=== PATIENT | female | born 1955 ===

== ENCOUNTER 2022-01-14 09:05 | Inpatient (IN) ==
[~2022-01-14 09:05] MED LIST: Buffered Lidocaine 1% SYRIN 1 ml INTRADERM ONE; Lactated Ringers 1000 ml BAG 1,000 ML IV SCH; Naloxone 0.4 mg VIAL 0.4 mg/ml 1 ml VIAL IV PRN; Prochlorperazine 5 mg/ml 2 ml VIAL (10 mg) IV PRN
[2022-01-14] MEDS ORDERED: Clindamycin 900 MG/D5W BAG 900 MG/50 ML BAG IVPB ONE (09:35)
[2022-01-14] MEDS ORDERED: Lidocaine 2% PF 5 ML VIAL ONE (11:51)
[2022-01-14] MEDS ORDERED: Propofol 10 MG/ML 20 ML BTL ONE ×2 (11:51→14:14)
[2022-01-14] MEDS ORDERED: fentaNYL 250 mcg/5 ml 50 MCG/ML 5 ml VIAL (250 MCG) ONE (12:21)
[2022-01-14] MEDS ORDERED: ROPIVACAINE 5 MG/ML 30 ML BTL (0.5%) ONE (12:21)
[2022-01-14] MEDS ORDERED: Midazolam 2 mg/2 ml VIAL 1 mg/ml 2 ml VIAL (2 mg) ONE (12:21)
[2022-01-14] MEDS ORDERED: Lactulose 30 ml UDC PO PRN (13:58)
[2022-01-14] MEDS ORDERED: Ondansetron ODT 4 mg TAB 4 MG TAB PO PRN (13:58)
[2022-01-14] MEDS ORDERED: Ondansetron 4 mg VIAL 2 MG/ML 2 ml VIAL IV PRN (13:58)
[2022-01-14] MEDS ORDERED: Magnesium Hydroxide LIQ 30 ML UDC PO PRN (13:58)
[2022-01-14] MEDS ORDERED: Lactated Ringers 1000 ml BAG 1,000 ML IV SCH (14:00)
[2022-01-14] MEDS ORDERED: Ropivacaine 5 MG/ML 20 ML VIAL 0.5% (100 MG) ONE (14:01)
[2022-01-14] MEDS ORDERED: Rocuronium 50 mg VIAL 10 mg/ml 5 ml VIAL (50 mg) ONE (14:19)
[2022-01-14] MEDS ORDERED: Ondansetron 4 mg VIAL 2 MG/ML 2 ml VIAL ONE (14:20)
[2022-01-14] MEDS ORDERED: Dexamethasone IV 4 MG/ML VIAL 1 ml VIAL ONE (14:20)
[2022-01-14] MEDS ORDERED: HYDROmorphone 1 MG/1 ML SYRINGE ONE (16:01)
[2022-01-14] MEDS: HYDROmorphone 1 MG/1 ML SYRINGE IV PRN ×5 (16:01→16:31)
[2022-01-14] MEDS ORDERED: Morphine 2 MG/ML SYRINGE ONE (19:55)
[2022-01-14] MEDS: Morphine 2 MG/ML SYRINGE IV PRN (19:57)
[2022-01-14] MEDS: Magnesium Hydroxide LIQ 30 ML UDC PO SCH (21:55)
[2022-01-14] MEDS: Clindamycin 600 MG/D5W BAG 600 MG/50 ML BAG IV SCH (22:01)
[2022-01-15] MEDS: Clindamycin 600 MG/D5W BAG 600 MG/50 ML BAG IV SCH ×2 (06:05→13:09)
[2022-01-15 06:11] LABS: Hematocrit 37 % (35-47); Mean Platelet Volume 8.9 fL (7.4-10.4); Platelet Count 259 10^3/uL (150-450)
[2022-01-15 06:38] LABS: Potassium 4.7 mmol/L (3.5-5.0)
[2022-01-15 06:44] LABS: eGFR CKD-EPI 89.5 (>60)
[2022-01-15] MEDS ORDERED: Influenza vaccine *QUAD* *2022-23* 0.5 ML SYRINGE IM ONE (09:00)
[2022-01-15] MEDS: CMCS: Venlafaxine 25 mg TAB (NF) PO SCH (09:05)
[2022-01-15] MEDS: Magnesium Hydroxide LIQ 30 ML UDC PO SCH ×2 (09:05→20:16)
[2022-01-15] MEDS: Vitamin THERAPEUTIC TAB PO SCH (09:05)
[2022-01-16 05:52] LABS: Hematocrit 39 % (35-47); Hemoglobin 12.5 g/dL (12.0-16.0); Mean Platelet Volume 9.1 fL (7.4-10.4); Platelet Count 286 10^3/uL (150-450)
[2022-01-16] MEDS: Vitamin THERAPEUTIC TAB PO SCH (08:56)
[2022-01-16] MEDS: Magnesium Hydroxide LIQ 30 ML UDC PO SCH (08:56)
[2022-01-16] MEDS: CMCS: Venlafaxine 25 mg TAB (NF) PO SCH (08:56)
[2022-01-16 12:41] VITALS: BP 149/62
[2022-01-16 14:11] LABS: Rapid COVID-19 Molecular Undetected (Undetected)
[2022-01-16] MEDS: Morphine 2 MG/ML SYRINGE IV PRN (15:04)
== END 2022-01-16 17:20 | DRG 470 ==
LOC: AA 09:05 → SSU 18:27
PROVIDERS: ADMIT Orthopaedic Surgery Adult Reconstructive Orthopaedic Surgery; ATTEND Orthopaedic Surgery Adult Reconstructive Orthopaedic Surgery